=== PATIENT | female | born 1995 | race African-American/Black ===

== ENCOUNTER 2019-08-10 09:47 | Emergency (ER) | payer MEDICAID ==
[~2019-08-10] VITALS: Ht 157.5 cm; Wt 57.2 kg
[2019-08-10 09:51] VITALS: BP 118/73
== END 2019-08-10 11:30 | disposition left against medical advice (07) ==
LOC: ER 09:59
DX: M79.642 Pain in left hand (principal); Z53.21 Procedure and treatment not carried out due to patient leaving prior to being seen by health care provider; X58.XXXA Exposure to other specified factors, initial encounter; Y93.89 Activity, other specified; Y92.89 Other specified places as the place of occurrence of the external cause; Y99.8 Other external cause status